=== PATIENT | male | born 1970 | race Caucasian/White ===

== ENCOUNTER 2017-06-09 03:25 | Emergency (ER) | payer MEDICAID ==
[~2017-06-09] VITALS: Ht 167.6 cm; Wt 74.8 kg
[2017-06-09 03:52] VITALS: BP 157/85
== END 2017-06-09 03:55 | disposition left against medical advice (07) ==
LOC: ER 03:27
DX: F19.10 Other psychoactive substance abuse, uncomplicated (principal); Z53.21 Procedure and treatment not carried out due to patient leaving prior to being seen by health care provider

== ENCOUNTER 2018-05-09 11:08 | Emergency (ER) | payer MEDICAID ==
[~2018-05-09] VITALS: Ht 167.6 cm; Wt 74.8 kg
[2018-05-09 11:18] VITALS: BP 121/73
[2018-05-09] MEDS ORDERED: KETOROLAC TROMETH 60MG/2ML VIAL IM ONE (13:15)
== END 2018-05-09 14:17 | disposition home or self-care (01) ==
LOC: ER 11:12
DX: M43.6 Torticollis (principal); M50.31 Other cervical disc degeneration, high cervical region
CPT/HCPCS: 72040; 96372; 99283; J1885

== ENCOUNTER 2019-01-11 22:13 | Emergency (ER) | payer MEDICARE, MEDICAID ==
[~2019-01-11] VITALS: Ht 167.6 cm; Wt 77.1 kg
[2019-01-12 00:27] VITALS: BP 107/86
== END 2019-01-12 01:24 | disposition home or self-care (01) ==
LOC: ER 22:15
DX: S00.411A Abrasion of right ear, initial encounter (principal); S09.8XXA Other specified injuries of head, initial encounter; F17.210 Nicotine dependence, cigarettes, uncomplicated; R42 Dizziness and giddiness; X99.0XXA Assault by sharp glass, initial encounter; Y93.89 Activity, other specified; Y92.090 Kitchen in other non-institutional residence as the place of occurrence of the external cause; Y99.8 Other external cause status

== ENCOUNTER 2021-07-09 22:23 | Emergency (ER) | payer MEDICAID ==
[~2021-07-09] VITALS: Ht 167.6 cm; Wt 81.6 kg
[2021-07-09 22:23] VITALS: BP 108/85
== END 2021-07-10 02:45 | disposition left against medical advice (07) ==
LOC: ER 22:23
DX: M79.644 Pain in right finger(s) (principal); Z53.21 Procedure and treatment not carried out due to patient leaving prior to being seen by health care provider
CPT/HCPCS: 73130

== ENCOUNTER 2021-07-12 02:31 | Emergency (ER) | payer MEDICAID ==
[~2021-07-12] VITALS: Ht 167.6 cm; Wt 81.6 kg
[2021-07-12 02:35] VITALS: BP 122/74
== END 2021-07-12 04:20 | disposition left against medical advice (07) ==
LOC: ER 02:31
DX: M79.644 Pain in right finger(s) (principal); Z53.21 Procedure and treatment not carried out due to patient leaving prior to being seen by health care provider; W22.8XXA Striking against or struck by other objects, initial encounter; Y93.89 Activity, other specified; Y92.89 Other specified places as the place of occurrence of the external cause; Y99.8 Other external cause status

== ENCOUNTER 2023-08-17 20:48 | Emergency (ER) | payer MEDICAID ==
[~2023-08-17] VITALS: Ht 167.6 cm; Wt 185.0 kg
[2023-08-17 20:48] VITALS: BP 111/84; RESP 20; O2SAT 96
[2023-08-17 20:58] VITALS: PULSE 93
[2023-08-17 21:28] LABS: Basophils # (auto) 0 10 ^3/uL (0-0.2); Basophils % (auto) 0.2 % (0.0-2.0); Eosinophils # (auto) 0.1 10 ^3/uL (0-0.8); Eosinophils % (auto) 0.6 % (0.0-7.0); Hematocrit 44.1 % (41.0-53.0); Hemoglobin 14.9 g/dL (13.5-17.5); Lymphocytes # (auto) 0.4 10 ^3/uL (0.4-5.4); Mean Corpuscular Hemoglobin 32.5 pg (28.0-32.0); Mean Corpuscular Hgb Conc. 33.7 g/dL (32.0-36.0); Mean Corpuscular Volume 96.4 fL (80.0-100.0); Monocytes # (auto) 0.4 10 ^3/uL (0-1.3); Monocytes % (auto) 3.3 % (0.0-12.0); Neutrophils # (auto) 11.8 10 ^3/uL (1.6-8.6); Neutrophils % (auto) 92.9 % (37.0-80.0); Red Blood Cells 4.58 10^6/uL (4.5-5.90); Red Cell Distribution Width 13.4 % (11.8-14.3); White Blood Cell 12.7 10^3/uL (4.4-10.8)
[2023-08-17 21:39] LABS: Alanine Aminotransferase 22 U/L (7-40); Albumin 4.4 g/dL (3.2-4.8); Alkaline Phosphatase 59 U/L (46-116); Anion Gap 6 (5-15); Aspartate Aminotransferase 19 U/L (13-40); BUN/Creatinine Ratio 19.1 (10.0-20.0); Blood Urea Nitrogen 18 mg/dL (9-23); Calcium 9.4 mg/dL (8.7-10.4); Carbon Dioxide 26 mmol/L (20-30); Chloride 107 mmol/L (98-107); Glucose 125 mg/dL (74-106); Magnesium 1.8 mg/dL (1.6-2.6); Potassium 3.9 mmol/L (3.5-5.1); Sodium 139 mmol/L (136-145)
[2023-08-17 21:40] LABS: Bilirubin, Total 1.4 mg/dL (0.2-1.0); Total Protein 7.2 g/dL (5.7-8.2)
[2023-08-17 21:50] LABS: Partial Thromboplastin Time 25.3 SEC (24.5-34.5); Prothrombin Time 10.6 sec (9.3-11.8)
== END 2023-08-17 22:39 | disposition left against medical advice (07) ==
LOC: ER 20:48
DX: R07.89 Other chest pain (principal); R53.1 Weakness; R11.2 Nausea with vomiting, unspecified; M54.9 Dorsalgia, unspecified; Z53.21 Procedure and treatment not carried out due to patient leaving prior to being seen by health care provider
CPT/HCPCS: 36415; 80053; 83735; 83880; 84484; 85025; 85610; 85730; 93005